=== PATIENT | female | born 1995 | race African-American/Black ===

== ENCOUNTER 2017-06-01 05:59 | Emergency (ER) | payer OTHER ==
[~2017-06-01] VITALS: Ht 157.5 cm; Wt 59.0 kg
[~2017-06-01 05:59] MED LIST: NORCO 5-325 TA1 EACH PO
[2018-01-04] MEDS ORDERED: ULTRAM 50MG TAB50 MG PO (16:17)
[2018-01-04] MEDS ORDERED: PENICILLIN V P500 MG PO (16:17)
== END 2017-06-01 07:04 | disposition home or self-care (01) ==
LOC: ER 05:59
DX: M25.521 Pain in right elbow (principal)

== ENCOUNTER 2017-09-21 17:44 | Emergency (ER) | payer OTHER ==
[~2017-09-21] VITALS: Ht 157.5 cm; Wt 52.2 kg
[2017-09-21 18:56] LABS: ABSOLUTE NEUTROPHILS 4.1 thou/uL (1.4-8.2); BASOPHILS 1.1 % (0.0-2.0); EOSINOPHILS 1.2 % (0.0-3.0); HEMOGLOBIN 13.8 gm/dL (12.0-15.0); LYMPHOCYTES 28.3 % (24.0-44.0); MCH 31.1 pg (26.0-34.0); MCHC 33.7 g/dL (28.0-37.0); MCV 92.1 fL (80.0-100.0); MONOCYTES 6.4 % (1.0-8.0); PLATELET COUNT 222 thou/uL (150-400); RBC 4.45 mil/uL (4.20-5.00); RDW 13.2 % (10.5-14.5); WBC 6.4 thou/uL (4.0-11.0)
[2017-09-21 19:10] LABS: CALCIUM 9.8 mg/dL (8.5-10.1); CREATININE 0.9 mg/dL (0.6-1.0); POTASSIUM 3.4 mmol/L (3.5-5.1)
[2017-09-21 19:16] LABS: ALBUMIN 4.7 g/dL (3.4-5.0); TOTAL BILIRUBIN 0.8 mg/dL (<0.1-1.0); TOTAL PROTEIN 9.2 g/dL (6.4-8.2)
[2017-09-21 20:27] LABS: URINE BILIRUBIN NEGATIVE (Negative); URINE BLOOD 2+ (Negative); URINE CLARITY CLEAR; URINE COLOR YELLOW; URINE GLUCOSE-RANDOM* NEGATIVE (Negative); URINE KETONES 2+ (Negative); URINE LEUKOCYTES-REFLEX NEGATIVE (Negative); URINE NITRITE-REFLEX NEGATIVE (Negative); URINE PROTEIN (DIPSTICK) 1+ (Negative); URINE SPECIFIC GRAVITY >= 1.030 (1.005-1.035)
[2017-09-21 20:37] LABS: CASTS None Seen /LPF (None Seen); CRYSTALS None Seen /LPF (None Seen); SQUAMOUS 0-3 Few /LPF (0-3); URINE RBC 3-10 Few /HPF (0-2); URINE WBC-REFLEX 0-5 Rare /HPF (0-5)
[2017-09-21 20:38] LABS: BACTERIA-REFLEX 1-9 Few /HPF (None Seen)
[2017-09-21 21:27] VITALS: BP 120/64
== END 2017-09-21 21:34 | disposition home or self-care (01) ==
LOC: ER 17:44
PROVIDERS: Emergency Medicine
DX: R10.30 Lower abdominal pain, unspecified (principal); R11.2 Nausea with vomiting, unspecified; R19.7 Diarrhea, unspecified

== ENCOUNTER 2017-11-22 17:21 | Emergency (ER) | payer OTHER ==
[~2017-11-22] VITALS: Ht 154.9 cm; Wt 54.4 kg
[2017-11-22 17:26] VITALS: BP 137/77
[2017-11-22] MEDS ORDERED: ULTRAM 50MG TAB50 MG PO (18:06)
[2017-11-22] MEDS ORDERED: CYCLOBENZAPRINE5 MG PO (18:06)
== END 2017-11-22 18:13 | disposition home or self-care (01) ==
LOC: ER 17:21
DX: S86.811A Strain of other muscle(s) and tendon(s) at lower leg level, right leg, initial encounter (principal); M79.671 Pain in right foot; W17.89XA Other fall from one level to another, initial encounter; Y92.89 Other specified places as the place of occurrence of the external cause; Y99.0 Civilian activity done for income or pay

== ENCOUNTER 2018-02-26 05:50 | Emergency (ER) | payer OTHER ==
[~2018-02-26] VITALS: Ht 154.9 cm; Wt 54.4 kg
[~2018-02-26 05:50] MED LIST changes: +CYCLOBENZAPRINE5 MG PO; +PENICILLIN V P500 MG PO; +ULTRAM 50MG TAB50 MG PO
[2018-02-26 06:16] LABS: ABSOLUTE NEUTROPHILS 4.5 thou/uL (1.4-8.2); EOSINOPHILS 6.5 % (0.0-3.0); HEMATOCRIT 42.1 % (37.0-47.0); HEMOGLOBIN 14.4 gm/dL (12.0-15.0); LYMPHOCYTES 30.3 % (24.0-44.0); MCH 31.5 pg (26.0-34.0); MCHC 34.3 g/dL (28.0-37.0); MCV 91.8 fL (80.0-100.0); MONOCYTES 5.8 % (1.0-8.0); PLATELET COUNT 250 thou/uL (150-400); POLYS 56.4 % (36.0-66.0); RBC 4.58 mil/uL (4.20-5.00); RDW 13.5 % (10.5-14.5); WBC 7.9 thou/uL (4.0-11.0)
[2018-02-26 06:25] LABS: CALCIUM 9.9 mg/dL (8.5-10.1); CREATININE 0.8 mg/dL (0.6-1.0); POTASSIUM 3.5 mmol/L (3.5-5.1)
[2018-02-26 06:31] LABS: ALBUMIN 4.5 g/dL (3.4-5.0); TOTAL BILIRUBIN 0.3 mg/dL (<0.1-1.0); TOTAL PROTEIN 9.6 g/dL (6.4-8.2)
[2018-02-26] MEDS ORDERED: ZOFRAN ODT8 MG PO (07:15)
[2018-02-26] MEDS ORDERED: NAPROXEN375 MG PO (07:15)
[2018-02-26] MEDS ORDERED: TRAMADOL 50 MG50 MG PO (07:15)
[2018-02-26 07:26] LABS: URINE BILIRUBIN NEGATIVE (Negative); URINE BLOOD 3+ (Negative); URINE CLARITY CLEAR; URINE COLOR YELLOW; URINE GLUCOSE-RANDOM* NEGATIVE (Negative); URINE KETONES NEGATIVE (Negative); URINE LEUKOCYTES-REFLEX NEGATIVE (Negative); URINE NITRITE-REFLEX NEGATIVE (Negative); URINE PROTEIN (DIPSTICK) 1+ (Negative); URINE SPECIFIC GRAVITY 1.025 (1.005-1.035); URINE UROBILINOGEN 0.2 E.U./dl (0.2-1.0)
[2018-02-26 07:42] LABS: BACTERIA-REFLEX None Seen /HPF (None Seen); MUCUS 4-6 Moderate strn/LPF (None Seen); SQUAMOUS 4-10 Moderate /LPF (0-3); URINE WBC-REFLEX 0-5 Rare /HPF (0-5)
[2018-02-26 07:49] LABS: CASTS None Seen /LPF (None Seen)
[2018-02-26 07:51] LABS: CRYSTALS None Seen /LPF (None Seen)
== END 2018-02-26 07:50 | disposition home or self-care (01) ==
LOC: ER 05:50
PROVIDERS: Emergency Medicine
DX: R11.2 Nausea with vomiting, unspecified (principal); R19.7 Diarrhea, unspecified; N94.6 Dysmenorrhea, unspecified; N80.9 Endometriosis, unspecified

== ENCOUNTER 2018-03-21 23:36 | Emergency (ER) | payer OTHER ==
[~2018-03-21] VITALS: Ht 157.5 cm; Wt 54.4 kg
[~2018-03-21 23:36] MED LIST changes: +NAPROXEN375 MG PO; +TRAMADOL 50 MG50 MG PO; +ZOFRAN ODT8 MG PO
[2018-03-22] MEDS ORDERED: IBUPROFEN 400400 M2 PO (00:58)
[2018-03-22] MEDS ORDERED: ZOFRAN4 MG PO (00:58)
[2018-03-22 02:10] VITALS: BP 125/47
== END 2018-03-22 02:47 | disposition home or self-care (01) ==
LOC: ER 23:36
DX: N94.6 Dysmenorrhea, unspecified (principal)

== ENCOUNTER 2018-04-19 05:38 | Emergency (ER) | payer OTHER ==
[~2018-04-19] VITALS: Ht 157.5 cm; Wt 54.4 kg
[~2018-04-19 05:38] MED LIST changes: +IBUPROFEN 400400 M2 PO; +ZOFRAN4 MG PO
[2018-04-19 06:55] LABS: URINE CLARITY SL HAZY; URINE COLOR YELLOW
[2018-04-19 06:56] LABS: URINE BILIRUBIN NEGATIVE (Negative); URINE BLOOD 3+ (Negative); URINE GLUCOSE-RANDOM* NEGATIVE (Negative); URINE KETONES NEGATIVE (Negative); URINE LEUKOCYTES-REFLEX NEGATIVE (Negative); URINE NITRITE-REFLEX NEGATIVE (Negative); URINE PROTEIN (DIPSTICK) 2+ (Negative); URINE SPECIFIC GRAVITY 1.025 (1.005-1.035); URINE UROBILINOGEN 0.2 E.U./dl (0.2-1.0)
[2018-04-19 07:02] LABS: AMP/METHAMP Negative (Negative); BARBITURATES Negative (Negative); BENZODIAZEPINES Negative (Negative); COCAINE Negative (Negative); METHADONE Negative (Negative); OPIATES Negative (Negative); PCP Negative (Negative)
[2018-04-19 07:06] LABS: SQUAMOUS 4-10 Moderate /LPF (0-3); URINE RBC >20 Many /HPF (0-2)
[2018-04-19 07:07] LABS: BACTERIA-REFLEX 1-9 Few /HPF (None Seen); CASTS None Seen /LPF (None Seen); CRYSTALS None Seen /LPF (None Seen); URINE WBC-REFLEX 0-5 Rare /HPF (0-5)
[2018-04-19] MEDS ORDERED: ZOFRAN ODT4 MG DISSOLVE (07:28)
[2018-04-19] MEDS ORDERED: TRAMADOL 50 MG50 MG PO (07:28)
[2018-04-19] MEDS ORDERED: NAPROXEN375 MG PO (07:28)
[2018-04-19 07:50] VITALS: BP 92/47
== END 2018-04-19 07:46 | disposition home or self-care (01) ==
LOC: ER 05:38
PROVIDERS: Emergency Medicine
DX: N80.9 Endometriosis, unspecified (principal); N94.6 Dysmenorrhea, unspecified; R11.2 Nausea with vomiting, unspecified; R19.7 Diarrhea, unspecified; F12.90 Cannabis use, unspecified, uncomplicated

== ENCOUNTER 2018-05-14 01:04 | Emergency (ER) | payer OTHER ==
[~2018-05-14] VITALS: Ht 157.5 cm; Wt 54.4 kg
[~2018-05-14 01:04] MED LIST changes: +ZOFRAN ODT4 MG DISSOLVE
[2018-05-14 01:27] LABS: ABSOLUTE NEUTROPHILS 4.4 thou/uL (1.4-8.2); EOSINOPHILS 3.1 % (0.0-3.0); HEMATOCRIT 39.7 % (37.0-47.0); HEMOGLOBIN 13.7 gm/dL (12.0-15.0); LYMPHOCYTES 35.3 % (24.0-44.0); MCH 31.7 pg (26.0-34.0); MCHC 34.5 g/dL (28.0-37.0); MCV 92.1 fL (80.0-100.0); MONOCYTES 8.9 % (1.0-8.0); PLATELET COUNT 226 thou/uL (150-400); POLYS 51.7 % (36.0-66.0); RBC 4.31 mil/uL (4.20-5.00); RDW 12.7 % (10.5-14.5); WBC 8.5 thou/uL (4.0-11.0)
[2018-05-14 01:34] LABS: CALCIUM 9.7 mg/dL (8.5-10.1); CREATININE 0.9 mg/dL (0.6-1.0); POTASSIUM 3.5 mmol/L (3.5-5.1)
[2018-05-14 01:40] LABS: ALBUMIN 4.6 g/dL (3.4-5.0); TOTAL BILIRUBIN 0.4 mg/dL (<0.1-1.0); TOTAL PROTEIN 9.1 g/dL (6.4-8.2)
[2018-05-14] MEDS ORDERED: ZOFRAN ODT4 MG DISSOLVE (02:20)
[2018-05-14] MEDS ORDERED: NAPROXEN375 MG PO (02:20)
[2018-05-14 02:59] VITALS: BP 96/56
== END 2018-05-14 03:00 | disposition home or self-care (01) ==
LOC: ER 01:04
PROVIDERS: Emergency Medicine
DX: R11.2 Nausea with vomiting, unspecified (principal); N94.6 Dysmenorrhea, unspecified

== ENCOUNTER 2018-07-09 08:56 | Emergency (ER) | payer OTHER ==
[~2018-07-09] VITALS: Ht 154.9 cm; Wt 59.0 kg
[2018-07-09 09:13] LABS: URINE BILIRUBIN NEGATIVE (Negative); URINE BLOOD 3+ (Negative); URINE CLARITY CLEAR; URINE COLOR YELLOW; URINE GLUCOSE-RANDOM* NEGATIVE (Negative); URINE KETONES NEGATIVE (Negative); URINE LEUKOCYTES-REFLEX TRACE (Negative); URINE NITRITE-REFLEX NEGATIVE (Negative); URINE PROTEIN (DIPSTICK) 1+ (Negative); URINE SPECIFIC GRAVITY 1.025 (1.005-1.035); URINE UROBILINOGEN 0.2 E.U./dl (0.2-1.0)
[2018-07-09 09:22] LABS: AMORPHOUS PHOSPHATES Moderate /LPF (None Seen); BACTERIA-REFLEX 1-9 Few /HPF (None Seen); CASTS None Seen /LPF (None Seen); MUCUS >6 Heavy strn/LPF (None Seen); SQUAMOUS 0-3 Few /LPF (0-3); URINE RBC >20 Many /HPF (0-2); URINE WBC-REFLEX 6-15 Few /HPF (0-5)
[2018-07-09 09:53] LABS: ABSOLUTE NEUTROPHILS 4.7 thou/uL (1.4-8.2); EOSINOPHILS 4.8 % (0.0-3.0); HEMATOCRIT 39.3 % (37.0-47.0); HEMOGLOBIN 13.4 gm/dL (12.0-15.0); LYMPHOCYTES 25.7 % (24.0-44.0); MCH 31.3 pg (26.0-34.0); MONOCYTES 8.8 % (1.0-8.0); PLATELET COUNT 253 thou/uL (150-400); POLYS 59.7 % (36.0-66.0); RBC 4.27 mil/uL (4.20-5.00); RDW 13.6 % (10.5-14.5); WBC 7.8 thou/uL (4.0-11.0)
[2018-07-09 09:57] LABS: CALCIUM 9.8 mg/dL (8.5-10.1); CREATININE 0.8 mg/dL (0.6-1.0); POTASSIUM 3.2 mmol/L (3.5-5.1)
[2018-07-09 10:04] LABS: ALBUMIN 4.4 g/dL (3.4-5.0); DIRECT BILIRUBIN 0.1 mg/dL (<0.1-0.3); TOTAL BILIRUBIN 0.6 mg/dL (<0.1-1.0); TOTAL PROTEIN 8.4 g/dL (6.4-8.2)
[2018-07-09] MEDS ORDERED: ZOFRAN ODT4 MG DISSOLVE (10:48)
[2018-07-09] MEDS ORDERED: TRAMADOL 50 MG50 MG PO (10:48)
[2018-07-09] MEDS ORDERED: NAPROSYN500 MG PO (10:48)
[2018-07-09 11:27] VITALS: BP 120/69
== END 2018-07-09 11:28 | disposition home or self-care (01) ==
LOC: ER 08:56
PROVIDERS: Emergency Medicine
DX: N80.9 Endometriosis, unspecified (principal); R11.2 Nausea with vomiting, unspecified

== ENCOUNTER 2018-08-27 06:57 | Emergency (ER) | payer OTHER ==
[~2018-08-27] VITALS: Ht 154.9 cm; Wt 59.0 kg
[~2018-08-27 06:57] MED LIST changes: +NAPROSYN500 MG PO
[2018-08-27 07:25] LABS: ABSOLUTE NEUTROPHILS 2.1 thou/uL (1.4-8.2); BASOPHILS 1.4 % (0.0-2.0); EOSINOPHILS 4.5 % (0.0-3.0); HEMATOCRIT 39.3 % (37.0-47.0); HEMOGLOBIN 13.4 gm/dL (12.0-15.0); LYMPHOCYTES 56.5 % (24.0-44.0); MCH 31.3 pg (26.0-34.0); MCHC 34.1 g/dL (28.0-37.0); MCV 91.7 fL (80.0-100.0); MONOCYTES 9.7 % (1.0-8.0); PLATELET COUNT 214 thou/uL (150-400); POLYS 27.9 % (36.0-66.0); RBC 4.29 mil/uL (4.20-5.00); RDW 13.8 % (10.5-14.5); WBC 7.5 thou/uL (4.0-11.0)
[2018-08-27 07:36] LABS: CALCIUM 9.8 mg/dL (8.5-10.1); CREATININE 0.9 mg/dL (0.6-1.0)
[2018-08-27] MEDS ORDERED: IBUPROFEN 400400 M2 PO (07:39)
[2018-08-27 07:42] LABS: POTASSIUM 2.7 mmol/L (3.5-5.1)
[2018-08-27 09:05] VITALS: BP 105/91
== END 2018-08-27 09:31 | disposition home or self-care (01) ==
LOC: ER 06:57
PROVIDERS: Student in an Organized Health Care Education/Training Program
DX: E87.6 Hypokalemia (principal); N80.9 Endometriosis, unspecified; N94.6 Dysmenorrhea, unspecified

== ENCOUNTER 2018-09-21 10:53 | Emergency (ER) | payer OTHER ==
[~2018-09-21] VITALS: Ht 154.9 cm; Wt 56.7 kg
[2018-09-21 11:47] LABS: URINE BILIRUBIN NEGATIVE (Negative); URINE BLOOD 3+ (Negative); URINE CLARITY SL CLOUDY; URINE COLOR YELLOW; URINE GLUCOSE-RANDOM* NEGATIVE (Negative); URINE KETONES NEGATIVE (Negative); URINE LEUKOCYTES-REFLEX TRACE (Negative); URINE NITRITE-REFLEX NEGATIVE (Negative); URINE PROTEIN (DIPSTICK) 1+ (Negative)
[2018-09-21 11:58] LABS: BACTERIA-REFLEX 1-9 Few /HPF (None Seen); CASTS None Seen /LPF (None Seen); CRYSTALS None Seen /LPF (None Seen); SQUAMOUS 4-10 Moderate /LPF (0-3); URINE WBC-REFLEX 6-15 Few /HPF (0-5)
[2018-09-21] MEDS ORDERED: ZOFRAN ODT4 MG PO (12:40)
[2018-09-21] MEDS ORDERED: NAPROSYN500 MG PO (12:40)
[2018-09-21 13:14] VITALS: BP 108/75
== END 2018-09-21 13:16 | disposition home or self-care (01) ==
LOC: ER 10:53
PROVIDERS: Emergency Medicine
DX: N94.6 Dysmenorrhea, unspecified (principal)

== ENCOUNTER 2018-10-13 16:49 | Emergency (ER) | payer OTHER ==
[~2018-10-13] VITALS: Ht 157.5 cm; Wt 54.4 kg
[~2018-10-13 16:49] MED LIST changes: +ZOFRAN ODT4 MG PO
[2018-10-13 17:21] LABS: BASOPHILS 1.3 % (0.0-2.0); EOSINOPHILS 2.2 % (0.0-3.0); HEMATOCRIT 41.5 % (37.0-47.0); HEMOGLOBIN 14.2 gm/dL (12.0-15.0); LYMPHOCYTES 30.1 % (24.0-44.0); MCH 31.5 pg (26.0-34.0); MCHC 34.2 g/dL (28.0-37.0); MCV 92.2 fL (80.0-100.0); MONOCYTES 7.5 % (1.0-8.0); PLATELET COUNT 220 thou/uL (150-400); POLYS 58.9 % (36.0-66.0); RDW 13.7 % (10.5-14.5); WBC 6.9 thou/uL (4.0-11.0)
[2018-10-13 17:41] LABS: CALCIUM 10.2 mg/dL (8.5-10.1); CREATININE 0.9 mg/dL (0.6-1.0); POTASSIUM 3.4 mmol/L (3.5-5.1)
[2018-10-13 17:46] LABS: ALBUMIN 4.9 g/dL (3.4-5.0); TOTAL BILIRUBIN 1.3 mg/dL (<0.1-1.0); TOTAL PROTEIN 9.5 g/dL (6.4-8.2)
[2018-10-13] MEDS ORDERED: ONDANSETRON HCL4 M2 PO (18:11)
[2018-10-13] MEDS ORDERED: NAPROSYN500 MG PO (18:11)
[2018-10-13 19:25] LABS: URINE BILIRUBIN NEGATIVE (Negative); URINE BLOOD 3+ (Negative); URINE CLARITY CLEAR; URINE COLOR YELLOW; URINE GLUCOSE-RANDOM* NEGATIVE (Negative); URINE KETONES 2+ (Negative); URINE LEUKOCYTES-REFLEX NEGATIVE (Negative); URINE NITRITE-REFLEX NEGATIVE (Negative); URINE PROTEIN (DIPSTICK) 3+ (Negative); URINE SPECIFIC GRAVITY >= 1.030 (1.005-1.035); URINE UROBILINOGEN 0.2 E.U./dl (0.2-1.0)
[2018-10-13 19:33] LABS: AMP/METHAMP Negative (Negative); BARBITURATES Negative (Negative); BENZODIAZEPINES Negative (Negative); COCAINE Negative (Negative); METHADONE Negative (Negative); OPIATES Negative (Negative); PCP Negative (Negative)
[2018-10-13 19:40] LABS: CASTS None Seen /LPF (None Seen); CRYSTALS None Seen /LPF (None Seen); SQUAMOUS 0-3 Few /LPF (0-3); URINE WBC-REFLEX 0-5 Rare /HPF (0-5); YEAST-REFLEX Present (None Seen)
[2018-10-13 19:43] LABS: BACTERIA-REFLEX 1-9 Few /HPF (None Seen)
[2018-10-13 20:15] VITALS: BP 91/47
== END 2018-10-13 20:15 | disposition home or self-care (01) ==
LOC: ER 16:49
PROVIDERS: Emergency Medicine
DX: N80.9 Endometriosis, unspecified (principal); E86.0 Dehydration; R11.2 Nausea with vomiting, unspecified; A59.01 Trichomonal vulvovaginitis; B37.3 Candidiasis of vulva and vagina

== ENCOUNTER 2018-10-14 18:43 | Emergency (ER) | payer OTHER ==
[~2018-10-14] VITALS: Ht 154.9 cm; Wt 54.4 kg
[~2018-10-14 18:43] MED LIST changes: +ONDANSETRON HCL4 M2 PO
[2018-10-14 19:45] LABS: ABSOLUTE NEUTROPHILS 3.2 thou/uL (1.4-8.2); BASOPHILS 1.2 % (0.0-2.0); EOSINOPHILS 3.5 % (0.0-3.0); HEMATOCRIT 38.7 % (37.0-47.0); HEMOGLOBIN 13.1 gm/dL (12.0-15.0); MCH 31.1 pg (26.0-34.0); MCHC 33.9 g/dL (28.0-37.0); MCV 91.7 fL (80.0-100.0); MONOCYTES 10.5 % (1.0-8.0); PLATELET COUNT 210 thou/uL (150-400); POLYS 45.8 % (36.0-66.0); RBC 4.22 mil/uL (4.20-5.00); RDW 13.5 % (10.5-14.5)
[2018-10-14 19:51] LABS: CALCIUM 9.7 mg/dL (8.5-10.1); CREATININE 0.9 mg/dL (0.6-1.0); POTASSIUM 4.6 mmol/L (3.5-5.1)
[2018-10-14 19:57] LABS: ALBUMIN 4.7 g/dL (3.4-5.0); TOTAL BILIRUBIN 0.6 mg/dL (<0.1-1.0); TOTAL PROTEIN 8.8 g/dL (6.4-8.2)
[2018-10-14 21:53] VITALS: BP 141/83
== END 2018-10-14 21:55 | disposition home or self-care (01) ==
LOC: ER 18:43
PROVIDERS: Emergency Medicine
DX: T67.5XXA Heat exhaustion, unspecified, initial encounter (principal); N80.9 Endometriosis, unspecified

== ENCOUNTER 2018-11-06 12:36 | Emergency (ER) | payer OTHER ==
[~2018-11-06] VITALS: Ht 157.5 cm; Wt 59.0 kg
[2018-11-06] MEDS ORDERED: ONDANSETRON HCL4 M2 PO (13:53)
[2018-11-06 14:06] VITALS: BP 122/72
== END 2018-11-06 14:15 | disposition home or self-care (01) ==
LOC: ER 12:36
DX: N80.9 Endometriosis, unspecified (principal); R11.2 Nausea with vomiting, unspecified